=== PATIENT | male | born 1950 | race Caucasian/White ===

== ENCOUNTER 2023-08-29 18:57 | Emergency (ER) | payer MEDICARE, SELFPAY ==
--- NOTE | ~2023-08-29 | XR_ITS ---
EXAMINATION: CHEST 2 VIEWS CLINICAL INFORMATION: cough, diminished BS on left. COMPARISON: No recent pertinent prior studies are available for comparison. TECHNIQUE: PA and lateral views of the chest obtained. FINDINGS: The lungs are well expanded. No focal infiltrate, effusion, edema, or pneumothorax. Cardiac and mediastinal silhouettes are within normal limits for technique. No acute bony abnormality seen XR/XR chest 2V IMPRESSION: No evidence of acute disease
[2023-08-29 19:41] VITALS: BP 159/78; PULSE 62; TEMP 36.7; O2SAT 96; BMI 26.4
--- NOTE | 2023-08-29 19:46 | ED_ITS ---
HPI - General Adult General Chief complaint: Upper Respiratory Symptoms Stated complaint: sob, coughing Time Seen by Provider: 08/30/23 00:17 Source: patient, RN notes reviewed and old records reviewed Mode of arrival: ambulatory Limitations: no limitations History of Present Illness HPI narrative: 73-year-old male who denies any past medical history presents for evaluation of cough and shortness of breath. Patient reports that he had the flu about 10 days ago. He had fevers, cough, diarrhea. He reports last Tuesday, about 5 days ago he finally felt better. The next day on he started to have cough, shortness of breath. The same ever since. He reports his cough is productive of yellow sputum. He reports that he has a smoker Denies any chest pain He denies any abdominal pain, nausea vomiting He endorses fatigue, no other complaints or concerns Related Data Previous Rx's Medication Instructions Recorded azithromycin 250 mg tablet 250 mg PO DAILY 4 days #4 tabs 08/30/23 benzonatate 200 mg capsule 200 mg PO TID PRN cough #20 caps 08/30/23 prednisone 20 mg tablet 40 mg (2 x 20 mg) PO DAILY #8 tabs 08/30/23 Allergies Allergy/AdvReac Type Severity Reaction Status Date / Time No Known Allergies Allergy Verified 08/29/23 19:40 [No Known Allergies*] Review of Systems Constitutional: Constitutional: Denies chills, Reports fatigue, Denies fever(s), Reports headache(s), Reports malaise and Reports weakness ENT: Reports headache(s) Cardiovascular: Cardiovascular: Denies chest pain, Denies chest pain at rest, Denies chest pain with activity and Reports dyspnea Respiratory: Respiratory: Reports chest congestion, Reports cough, Reports excessive phlegm production, Reports pain with cough and Reports dyspnea Gastrointestinal: Gastrointestinal: Denies abdominal pain, Denies nausea and Denies vomiting Musculoskeletal: Musculoskeletal: Denies back pain Integumentary/Breasts: Skin/Breast: Denies rash Neurologic: Reports headache(s) and Reports weakness Endocrine: Endocrine: Reports fatigue PMFSH Social History Social History Advance Directives: No Advance Directives Information Provided: No Physical Exam ED Vital Signs: Vital Signs - 24 hr 08/29/23 19:41 Temperature 98.0 F Pulse Rate 62 Blood Pressure 159/78 H Pulse Oximetry 96 Oxygen Delivery Method Room Air BMI result Body Mass Index 26.4 Const General: healthy appearing, comfortable, no acute distress, alert and awake Nutritional Appearance: well nourished Orientation/consciousness: patient oriented x3 HENMT Head: Yes normocephalic and Yes atraumatic Eyes Eyelids: Yes eyelids normal Conjunctivae: conjunctivae normal Sclerae: sclerae normal Corneas: corneas normal Pupils: Equal, round and reactive pupils present EOM: EOMs intact bilaterally Neck Neck: Yes full ROM Resp Effort & Inspection: normal respiratory effort, able to speak in complete sentences, no audible wheezes and not labored Auscultation: clear to auscultation bilaterally GI Inspection: No distended Palpation (GI): Soft to palpation, not firm, nontender, no guarding and not rigid Skin General skin exam: elasticity normal Neuro General: patient oriented x3 Cranial nerves: Yes Equal, round and reactive pupils present and Yes Bilaterally intact EOM present Cognition (Neuro): normal cognition Extrem Other: Moving all extremities well without any obvious deformities Course Course Course Narrative: RME:?73 yo male here for eval of cough and headache x1 week with shortness of breath beginning today. cough is productive of yellow sputum production. he quit smoking tobacco 2 weeks ago. denies fever, chills, sore throat, chest pain. denies recent travel/long car rides. denies known sick contacts. pe: diminished BS to left. cta on right. coughing on exam. serology and CXR ordered. Full HPI, ROS and PE to be performed by the primary ED provider. Medical Decision Making Medical Decision Making [facility] Narrative: 73-year-old male presents for evaluation of flu-like symptoms. His viral swabs were negative, vital signs are stable, chest x-ray does not show any evidence of pneumonia. Given the advanced age and the fact the patient is a smoker, we will cover with azithromycin and prednisone for upper respiratory infection. He is stable for discharge at this time. Differential Diagnosis Differential Diagnoses: The differential diagnosis associated with the presentation includes Upper respiratory infection Viral syndrome Pneumonia COVID-19 Lab Data Labs: Lab Results 08/29/23 Range/Units 20:24 Influenza Type A (PCR) NEGATIVE (Negative) Influenza Type B (PCR) NEGATIVE (Negative) RSV RNA Qual (PCR) NEGATIVE (Negative) SARS-CoV-2 RNA (RT-PCR) NEGATIVE (Negative) Independent Interpretation I performed an independent interpretation of an: Plain X-Ray (No infiltrate) Radiology Impression Discussion of test interpretation with radiology: I have reviewed the radiologist's reading. (No evidence of acute disease) Discharge Plan Discharge Clinical Impression: Upper respiratory infection Patient Disposition: Home, Self-Care Instructions: Upper Respiratory Infection (ED) Additional Instructions: Take azithromycin daily for the next 4 days starting tomorrow. Take prednisone 40 mg daily starting tomorrow as your 1st doses were given in the ER Use benzonatate as needed for cough Hydrate well Return for new or worsening symptoms Prescriptions: New prednisone 20 mg tablet 40 mg PO DAILY Qty: 8 0RF benzonatate 200 mg capsule 200 mg PO TID PRN (Reason: cough) Qty: 20 0RF azithromycin 250 mg tablet 250 mg PO DAILY 4 Days Qty: 4 0RF Rx Instructions: start on day 2 of therapy
--- NOTE | 2023-08-29 19:48 | PC.NURSE ---
Pt A&Ox3, speaking in full sentences, SpO2 96% on RA, lung sounds clear to left, diminished to right.
[2023-08-29 21:05] LABS: Influenza A PCR NEGATIVE (Negative); Influenza B PCR NEGATIVE (Negative); Resp Syncy Virus RNA Qual PCR NEGATIVE (Negative); SARS COV2 PCR INHOUSE NEGATIVE (Negative)
[2023-08-30] MEDS: Benzonatate 100 MG CAPSULE 200 MG PO (00:33)
[2023-08-30] MEDS: Azithromycin 500 MG TABLET PO (00:33)
[2023-08-30] MEDS: predniSONE 20 MG TABLET 60 MG PO (00:33)
== END 2023-08-30 00:42 | disposition home or self-care (01) ==
PROVIDERS: Physician Assistant Medical; Emergency Provider Internal Medicine
DX: J06.9 Acute upper respiratory infection, unspecified (principal); Z11.52 Encounter for screening for COVID-19; Z20.828 Contact with and (suspected) exposure to other viral communicable diseases; Z87.891 Personal history of nicotine dependence
CPT/HCPCS: 0241U; 71046; 99283